=== PATIENT | female | born 1955 | race Caucasian/White ===

== ENCOUNTER 2016-10-21 16:55 | Emergency (ER) | payer OTHER ==
[2016-10-21 17:26] VITALS: BP 141/107
--- NOTE | 2016-10-21 19:49 | ERNOTE ---
Date of Service: 10/21/16 Time Seen by Provider: 10/21/16 19:40 Stated Complaint: COUGHING UP BLOOD Presenting Symptoms:: cough Immunizations: IMMUNIZATION HX Immunizations Up to Date Yes History of Influenza Vaccine No Hx Pneumococcal Vaccination No Allergies/Adverse Reactions: Allergies No Known Allergies Allergy (Verified 05/27/15 09:02) Home Medications: HOME MEDICATIONS Citalopram Hydrobromide [Citalopram HBr] 20 mg PO DAILY 10/21/16 [Last Taken Unknown] - History of Present Ilness Narrative: this is an extremely angry patient who is mad because "I've been here for three hours and I'm coughing up blood and I want to see my Xray" She states that she coughed up blood yesterday morning and then one episode tonight. Denies any sore throat, fevers, chills or history of TB. She does not have any shortness of breath at this time and did not yesterday. She does not feel dizzy or lightheaded at this time. Review of Systems - Review of Systems Constitutional: Present: no symptoms reported EYE: Present: no symptoms reported ENT: Present: no symptoms reported Respiratory: Present: See HPI Cardiology: Present: no symptoms reported Gastrointestinal/Abdominal: Present: no symptoms reported - Patient's Past Medical History Patient History - Medical: Anxiety, Depression, Headache Patient History - Cardiac/Respiratory: No pertinent hx Patient History - Cancer: No Hx of Cancer Patient History - Surgical Procedures: Colonoscopy, EGD, Total Hip Replacement, T & A Patient History - Other: None - Family History Father Family History - Medical: Grandfather-Maternal Family History - Medical: Family History - Cardiac/Respiratory: CVA/Stroke, Myocardial Infarction - Social History Living Situations: home Abuse History: No History of abuse Psych History: Hx of Anxiety, Hx of Depression, Current tx/ever been on anti- depressants or anti-anxiety meds Smoking Status: Current every day smoker Have you smoked in the past 12 months: Yes Alcohol Use: occasionally Drug Use: none - Immunizations Immunizations Up to Date: Yes Hx Pneumococcal Vaccination: No History of Influenza Vaccine: No Physical Exam - Physical Exam General Appearance: Present: wd/wn, alert, no apparent distress Ears, Nose, Throat: Present: normal ENT inspection, normal pharynx Neck: Present: normal inspection, nontender, supple Respiratory: Present: no respiratory distress, normal breath sounds, no accessory muscle use, chest nontender, lungs clear - pt does show me blood stained tissue from her having coughed up blood. Cardiovascular/Chest: Present: regular rate, rhythm, no murmur, normal peripheral pulses Extremity Exam: Present: normal inspection Neurological Exam: Present: alert, oriented, normal mood/affect, no motor/ sensory deficits ED Progress - Results and Orders Patient's Lab Results:: I have reviewed the patient's lab results. - Vital Signs Patient's Vital Signs:: I have reviewed the patient's vital signs. Vital Signs: Vital Signs 10/21/16 17:23 Temperature 36.6 C Pulse Rate 78 Respiratory 16 Rate Blood Pressure 141/107 O2 Sat by Pulse 98 Oximetry - Progress/Reassessment Chief Complaint: Cough Plan - Plan Plan: pt has had hemoptysis, the etiology of which is unknown. Her H/H is stable and she does not feel dizzy. She was resistent to us doing orthostatics as ordered.She is stable to be discharged and will go see her PCP. Her CXR is normal Departure - Departure Clinical Impression: Hemoptysis Disposition: Home self-care Condition: Good Instructions: Hemoptysis, [id number] Additional Instructions: please go see your PCP for further work up
--- OUTSIDE RECORDS SUMMARY | 2016-10-21 20:08 | XMS REPORT | Continuity of Care Document ---
:1955 Author Organization [facility] ([facility]) Address [address] [place] [address] Phone [phone] Care Team Providers Name Role Phone Unavailable Primary Care Provider Unavailable Source Comments This disclosure is being made pursuant to the Care Everywhere program, applicable federal and state laws, and may not contain all informaitonavailable regarding this patient.[facility] ([facility]) Active Allergies and Adverse Reactions Not on File Current Medications Not on file Active Problems Not on file Social History Tobacco Use Types Packs/Day Years Used Date Never Assessed Plan of Care Health Maintenance Due Date Last Done Comments HCV Screening 1955 Hepatitis B Vaccine (1 of 3 - Primary Series) 1955 Tdap Vaccine 1964 Lipid Disorder Screening 09/25/1971 Td Vaccine 09/25/1971 Cervical Cancer Screening 09/25/1983 Mammogram 1993 Colonoscopy 2003 Zoster Vaccine 2013 Influenza Vaccine: Seasonal (#1) 02/17/2016 Results from Last 3 Months Not on file
[2016-10-21 20:23] LABS: Hematocrit 46.1 % (37.0-47.0); Hemoglobin 15.6 gm/dL (12.5-16.0); Mean Cell Volume 88.5 fl (78-100); Mean Corpuscular Hemoglobin 29.9 pg (27-31); Mean Corpuscular Hgb Conc 33.8 g/dl (32-36); Mean Platelet Volume 8.6 fl (6.0-9.5); Neutrophil # 6.4 K/mm3 (1.3-6.0); Neutrophil % 64.4 % (42-75.0); Platelet Count 307 K/mm3 (150-450); Red Blood Count 5.21 M/mm3 (4.2-5.4)
== END 2016-10-21 20:53 | disposition home or self-care (01) ==
LOC: ER 16:55
DX: R04.2 Hemoptysis (principal); F17.210 Nicotine dependence, cigarettes, uncomplicated